=== PATIENT | female | born 1965 | race Caucasian/White ===

== ENCOUNTER → 2021-10-23 | Outpatient (CLI) | payer OTHER ==
[~2021-10-23] MED LIST: CRUTCH3 USE; CYCL10 PO; Cyclobenzaprine5 MG PO; DIAZ5 PO; DULO30; FURO20 PO; GABA300 PO; GLIP5 PO; HYDACE5 PO; IBUP800 PO; LEVFLO500 PO; METF500 PO; METO25; NAPR500 PO; Naprosyn500 MG PO; OMEP20ER PO; OXYACE5T PO; POTCHL10ER PO; PRAV10 PO; PRED20 PO; PROCODE120 PO; Percocet 5-3251 EACH PO; Phenergan25 M1 PO; Prednisone20 MG PO; Prozac20 MG PO; RXCYCL10 PO; RXHYDACE PO; RXHYDMOR2 PO; RXOXYACE PO; SITA25T2 PO; TRAM50 PO; TRAZ50 PO; Ultram50 MG PO; Veetids 500500 MG PO; ZESTRIL40 MG PO; [UNRECOGNIZED DRUG - REMARK]; [UNRECOGNIZED DRUG - REMARK]
[2021-10-23 12:24] LABS: Source, Urine Clean Catch
[2021-10-23 13:22] LABS: Appearance, Urine Clear (Clear); Bilirubin, Urine Neg (Neg); Blood, Urine 1+ (Neg); Color, Urine Yellow (P-Yellow); Glucose Qualitative, Urine Neg (Neg); Ketones, Urine Neg (Neg); Leukocyte Esterase, Urine Neg (Neg); Nitrite, Urine Neg (Neg); Protein, Urine 4+ (Neg); Specific Gravity, Urine 1.015 (1.003-1.022); Urobilinogen, Urine NORM (Normal)
[2021-10-23 13:30] LABS: White Blood Cells, Urine 0-2 /hpf (0-5)
[2021-10-23 13:31] LABS: Bacteria Mod /hpf; Red Blood Cells, Urine 0-2 /hpf (0-2); Squamous Epithelial Cells Few /hpf (Few)
[2021-10-23 14:30] LABS: Creatinine, Urine Random 72.4 mg/dL (27.00-270.00); Protein, Urine Random 233.3 mg/dL (0.0-11.9); Protein/Creat Ratio, Ur Random 3.2
== END | disposition home or self-care (01) ==
LOC: LAB 10:40 → LAB SHORT 10:40
PROVIDERS: Internal Medicine Nephrology
DX: N18.4 Chronic kidney disease, stage 4 (severe) (principal)
CPT/HCPCS: 81001; 82570; 84156; 87086

== ENCOUNTER 2022-07-21 10:45 | Day surgery (SDC) | payer OTHER ==
[2022-07-26] MEDS ORDERED: DEXL60CA3 PO (12:18)
[2022-07-26] MEDS ORDERED: MICROZIDE12.5 M1 PO (12:19)
[2022-07-26] MEDS ORDERED: HUMULIN R500 UNIT/2 (12:19)
[2022-07-26] MEDS ORDERED: LOSA50 PO (12:20)
[2022-07-26] MEDS ORDERED: ZYRTEC10 M2 PO (12:20)
[2022-07-26] MEDS ORDERED: ALBU90OI INH (12:20)
[2022-07-26] MEDS ORDERED: ONDA4ODT MM (12:21)
[2022-07-26] MEDS ORDERED: POTASSIUM99 M3 PO (12:21)
[2022-07-26] MEDS ORDERED: TORSE20 PO (12:21)
[2022-07-26] MEDS ORDERED: PREG75 PO (12:22)
[2022-07-26] MEDS ORDERED: FARXIGA5 MG PO (12:22)
[2022-07-26] MEDS ORDERED: VICTOZA 2-0.6 MG/0.1 SC (12:22)
== END 2022-07-27 22:41 | disposition home or self-care (01) ==
LOC: MOI MAM 10:45
DX: D05.12 Intraductal carcinoma in situ of left breast (principal)
CPT/HCPCS: 19281; A4648

== ENCOUNTER 2022-08-26 08:58 | Day surgery (SDC) | payer OTHER ==
[~2022-08-26] VITALS: Ht 167.6 cm; Wt 134.3 kg
[~2022-08-26 08:58] MED LIST changes: +ALBU90OI INH; +DEXL60CA3 PO; +FARXIGA5 MG PO; +HUMULIN R500 UNIT/2; +LOSA50 PO; +MICROZIDE12.5 M1 PO; +ONDA4ODT MM; +POTASSIUM99 M3 PO; +PREG75 PO; +TORSE20 PO; +VICTOZA 2-0.6 MG/0.1 SC; +ZYRTEC10 M2 PO
--- NOTE | 2022-08-26 10:21 | NUR ---
Wheelchair into Day Surgery History, Chart, Medications and Allergies reviewed before start of procedure. Pre-Op teaching done. Pt verbalizes understanding. Patient States Post-Procedure ride home has been arranged.
--- NOTE | 2022-08-26 13:24 | NUR ---
REPORT RECEIVED FROM PEDRO NAGY RN. VSS. PT REPORTS 2/10 ACHING PAIN TO LEFT BREAST. DRESSINGS ARE C/D/I WITHOUT DRAINAGE, REDNESS, OR SWELLING. PT TOLERATING PO FLUIDS WELL AND TOLERATING THEM WELL.
--- NOTE | 2022-08-26 13:41 | NUR ---
Patient up to Ambulate independently. Gait steady. Discharge instructions reviewed with patient. Patient verbalizes understanding. Copy given to patient to take home. Dressing to procedure site clean, dry, intact with no visible drainage, swelling, erythema or bruising noted. Patient States Post-Procedure ride home has been arranged. Discharged via wheelchair to private car for ride home. PT BELONGINGS RETURNED TO PT.
== END 2022-08-26 22:36 | disposition home or self-care (01) ==
LOC: ORSCMMR 08:58 → ORD 10:15 → ORSCMMR 22:36
PROVIDERS: Surgery
PROC: 0HBU0ZZ Excision of Left Breast, Open Approach (ICD-10-PCS; principal; 2022-08-26 10:15)
DX: D05.12 Intraductal carcinoma in situ of left breast (principal); E11.22 Type 2 diabetes mellitus with diabetic chronic kidney disease; I12.9 Hypertensive chronic kidney disease with stage 1 through stage 4 chronic kidney disease, or unspecified chronic kidney disease; N18.9 Chronic kidney disease, unspecified; Z79.4 Long term (current) use of insulin; Z79.899 Other long term (current) drug therapy; J44.9 Chronic obstructive pulmonary disease, unspecified; K21.9 Gastro-esophageal reflux disease without esophagitis; G47.33 Obstructive sleep apnea (adult) (pediatric); E66.01 Morbid (severe) obesity due to excess calories; Z68.42 Body mass index [BMI] 45.0-49.9, adult
CPT/HCPCS: 82947; 88307; J0690; J1100; J2405; J2704; J2795; J3010; J7120

== ENCOUNTER 2022-11-18 11:19 | Day surgery (SDC) | payer OTHER ==
[2022-11-18] VITALS (7 sets, daily range): BP systolic 145–177; BP diastolic 68–87
[~2022-11-18] VITALS: Ht 167.6 cm; Wt 129.0 kg
[~2022-11-18 11:19] MED LIST changes: +FEBU40TA PO; +FERSU300 PO; -HUMULIN R500 UNIT/2; +HUMULIN R500 UNIT/2 SC; +OXYC5 PO; +OXYCODONE PO; -PRAV10 PO; +PRAV20 PO
--- NOTE | 2022-11-18 12:17 | NUR ---
Wheelchaired into Day Surgery History, Chart, Medications and Allergies reviewed before start of procedure. Pre-Op teaching done. Pt verbalizes understanding. Patient States Post-Procedure ride home has been arranged.
--- NOTE | 2022-11-18 14:41 | NUR ---
Patient up to Ambulate independently. Gait steady. Discharge instructions reviewed with patient. Patient verbalizes understanding. Copy given to patient to take home. History, Chart, Medications and Allergies reviewed before start of procedure.Patient States Post-Procedure ride home has been arranged.
== END 2022-11-18 14:44 | disposition home or self-care (01) ==
LOC: ORSCMMR 11:19 → ORD 13:00 → ORSCMMR 14:44
DX: C50.812 Malignant neoplasm of overlapping sites of left female breast (principal); E11.40 Type 2 diabetes mellitus with diabetic neuropathy, unspecified; Z79.4 Long term (current) use of insulin; I12.9 Hypertensive chronic kidney disease with stage 1 through stage 4 chronic kidney disease, or unspecified chronic kidney disease; E11.22 Type 2 diabetes mellitus with diabetic chronic kidney disease; N18.9 Chronic kidney disease, unspecified; J44.9 Chronic obstructive pulmonary disease, unspecified; F17.210 Nicotine dependence, cigarettes, uncomplicated; E66.01 Morbid (severe) obesity due to excess calories; Z68.42 Body mass index [BMI] 45.0-49.9, adult; Z79.899 Other long term (current) drug therapy
CPT/HCPCS: 77001; 82947; C1788; J0330; J0690; J1100; J1642; J2250; J2405; J2704; J3010; J7120

== ENCOUNTER → 2023-02-18 | Outpatient (CLI) | payer OTHER ==
[2023-02-18 13:00] LABS: Source, Urine Clean Catch
[2023-02-18 13:05] LABS: Appearance, Urine Clear (Clear); Bilirubin, Urine Neg (Neg); Blood, Urine 2+ (Neg); Glucose Qualitative, Urine 3+ (Neg); Ketones, Urine Neg (Neg); Leukocyte Esterase, Urine Neg (Neg); Nitrite, Urine Neg (Neg); Protein, Urine 3+ (Neg); Urobilinogen, Urine NORM (Normal)
[2023-02-18 13:12] LABS: BASOPHILS ABSOLUTE AUTO 0.06 K/mm3 (0.00-0.23); BASOPHILS PERCENT AUTO 1 % (0-2); EOSINOPHILS ABSOLUTE AUTO 0.04 K/mm3 (0.00-0.68); EOSINOPHILS PERCENT AUTO 1 % (0-6); Hematocrit 34.7 % (33.0-51.0); Hemoglobin 11.2 g/dL (11.5-16.0); IMMATURE GRAN ABSOLUTE AUTO 0.06 K/mm3 (0.00-0.10); IMMATURE GRAN PERCENT AUTO 1 % (0-1); LYMPHOCYTES ABSOLUTE AUTO 1.55 K/mm3 (0.84-5.20); LYMPHOCYTES PERCENT AUTO 24 % (21-46); MONOCYTES ABSOLUTE AUTO 0.44 K/mm3 (0.16-1.47); MONOCYTES PERCENT AUTO 7 % (4-13); Mean Corpuscular HGB 26.4 pg (26.0-34.0); Mean Corpuscular HGB Conc 32.3 g/dL (31.5-36.5); Mean Corpuscular Volume 82 fL (80-100); Mean Platelet Volume 10.3 fL (9.1-12.4); NEUTROPHILS ABSOLUTE AUTO 4.44 K/mm3 (1.96-9.15); NEUTROPHILS PERCENT AUTO 67 % (41-73); Platelet Count 111 K/mm3 (150-400); RDW Coefficient Variation 20.1 % (11.7-14.2); RDW Standard Deviation 58.4 fL (35.1-46.3); Red Blood Cell Count 4.24 M/mm3 (3.80-5.20); White Blood Cell Count 6.59 K/mm3 (4.00-11.30)
[2023-02-18 13:26] LABS: Color, Urine Pale Yellow (P-Yellow)
[2023-02-18 13:31] LABS: White Blood Cells, Urine 0-2 /hpf (0-5)
[2023-02-18 13:32] LABS: Red Blood Cells, Urine 0-2 /hpf (0-2)
[2023-02-18 13:33] LABS: Bacteria Mod /hpf; Squamous Epithelial Cells Few /hpf (Few)
[2023-02-18 13:42] LABS: Creatinine, Urine Random 75.6 mg/dL (27.00-270.00); Protein, Urine Random 148.2 mg/dL (0.0-11.9)
[2023-02-18 14:29] LABS: Albumin, Blood 3.1 g/dL (3.4-5.0); Anion Gap 6 mmol/L (6-16); Blood Urea Nitrogen 66 mg/dL (8-24); Bun/Creatinine Ratio 29.1 (12.0-20.0); CO2, Blood 28 mmol/L (21-32); Calcium, Blood 8.8 mg/dL (8.5-10.1); Chloride, Blood 105 mmol/L (98-108); Creatinine, Blood 2.27 mg/dL (0.40-1.00); Glomerular Filtration Rate 24 (60-); Glucose, Blood 213 mg/dL (70-99); Phosphorus, Blood 3.9 mg/dL (2.5-4.9); Potassium, Blood 3.8 mmol/L (3.5-5.5); Sodium, Blood 139 mmol/L (136-145)
== END | disposition home or self-care (01) ==
LOC: LAB SHORT 11:31 → LAB 11:31
PROVIDERS: Hospitalist
DX: N18.32 Chronic kidney disease, stage 3b (principal)
CPT/HCPCS: 36415; 80069; 81001; 82570; 83970; 84156; 85025; 87086

== ENCOUNTER → 2023-03-29 | Outpatient (CLI) | payer OTHER ==
[2023-03-29 15:08] LABS: C DIFFICILE DNA NEGATIVE (Negative)
== END | disposition home or self-care (01) ==
LOC: LAB SHORT 01:30 → LAB 01:30
PROVIDERS: Internal Medicine Hematology & Oncology
DX: C50.919 Malignant neoplasm of unspecified site of unspecified female breast (principal)
CPT/HCPCS: 87493

== ENCOUNTER 2023-12-15 11:26 | Day surgery (SDC) | payer OTHER ==
[~2023-12-15] VITALS: Ht 167.6 cm; Wt 131.8 kg
[~2023-12-15 11:26] MED LIST changes: +Balanced Salt Epinephrine Irrigation Solution 500 mL IR SCH; +Lidocaine HCl/Pf 1% 5 ML VIAL XX SCH; +Moxifloxacin HCL 0.5 MG/0.1 ML 0.4MLSYR RIGHTEYE SCH; +NS 500 ML IV ONE; +PHENYLEPHRINE\\TROPICAMIDE\\TETRACAINE OPHTHALMIC DILATING SOLN RIGHTEYE PRN; +Povidone-Iodine 450 DROP/30 ML Solution RIGHTEYE SCH; +Triamcinolone Inj Susp 40 MG / ML 1ML Vial INJ SCH; +Triamcinolone Inj Susp 40 MG / ML 1ML Vial ONE
[2023-12-15] MEDS ORDERED: NS 500 ML IV ONE (11:39)
[2023-12-15] MEDS ORDERED: OZEMPIC1 MG/0.72 SQ (11:43)
[2023-12-15] MEDS ORDERED: METOPROLOL SUCC25 MG PO (11:45)
[2023-12-15] MEDS ORDERED: DEXCOM G7 SENS1 EACH MC (11:49)
[2023-12-15] MEDS ORDERED: CALCITRIOL0.25 MC4 PO (11:50)
[2023-12-15] MEDS ORDERED: HYDPAM50 (11:50)
[2023-12-15] MEDS ORDERED: ESCI10 PO (11:50)
[2023-12-15] MEDS ORDERED: ANASTROZOLE1 M7 PO (11:51)
[2023-12-15] MEDS ORDERED: PANTOPRAZOLE SO40 M2 PO (11:51)
[2023-12-15] MEDS ORDERED: Midazolam HCl 1MG / ML 2ML Vial ONE ×2 (12:17→12:22)
[2023-12-15] MEDS ORDERED: FentaNYL Citrate 50 MCG/ML 2 ML Injection ONE (12:17)
[2023-12-15] MEDS ORDERED: Tetracaine HCl 0.5% Opth Soln 15 ml RIGHTEYE ONE (12:23)
[2023-12-15 12:53] VITALS: BP 122/60
== END 2023-12-15 13:02 | disposition home or self-care (01) ==
LOC: ORSCSDS 11:26
PROVIDERS: Ophthalmology
PROC: 08RJ3JZ Replacement of Right Lens with Synthetic Substitute, Percutaneous Approach (ICD-10-PCS; principal; 2023-12-15 12:30)
DX: E11.36 Type 2 diabetes mellitus with diabetic cataract (principal); H25.811 Combined forms of age-related cataract, right eye; E11.22 Type 2 diabetes mellitus with diabetic chronic kidney disease; I12.9 Hypertensive chronic kidney disease with stage 1 through stage 4 chronic kidney disease, or unspecified chronic kidney disease; N18.30 Chronic kidney disease, stage 3 unspecified; G47.33 Obstructive sleep apnea (adult) (pediatric); Z85.3 Personal history of malignant neoplasm of breast; E66.9 Obesity, unspecified; Z68.42 Body mass index [BMI] 45.0-49.9, adult; Z79.4 Long term (current) use of insulin; Z79.85 Long-term (current) use of injectable non-insulin antidiabetic drugs; Z79.899 Other long term (current) drug therapy; F17.290 Nicotine dependence, other tobacco product, uncomplicated
CPT/HCPCS: 82947; J2250; J3010; J3301; J7040; V2632

== ENCOUNTER 2023-12-22 11:24 | Day surgery (SDC) | payer OTHER ==
[~2023-12-22] VITALS: Ht 167.6 cm; Wt 129.1 kg
[~2023-12-22 11:24] MED LIST changes: +ANASTROZOLE1 M7 PO; +CALCITRIOL0.25 MC4 PO; +DEXCOM G7 SENS1 EACH MC; +ESCI10 PO; +HYDPAM50; +METOPROLOL SUCC25 MG PO; +Moxifloxacin HCL 0.5 MG/0.1 ML 0.4MLSYR LEFTEYE SCH; -Moxifloxacin HCL 0.5 MG/0.1 ML 0.4MLSYR RIGHTEYE SCH; +OZEMPIC1 MG/0.72 SQ; +PANTOPRAZOLE SO40 M2 PO; +PHENYLEPHRINE\\TROPICAMIDE\\TETRACAINE OPHTHALMIC DILATING SOLN LEFTEYE PRN; -PHENYLEPHRINE\\TROPICAMIDE\\TETRACAINE OPHTHALMIC DILATING SOLN RIGHTEYE PRN; +Povidone-Iodine 450 DROP/30 ML Solution LEFTEYE SCH; -Povidone-Iodine 450 DROP/30 ML Solution RIGHTEYE SCH
[2023-12-22] MEDS ORDERED: Tropicamide 1% Opth Soln 15 ML BTL ONE (11:40)
[2023-12-22] MEDS ORDERED: ALBU8HFA2 (11:56)
[2023-12-22] MEDS ORDERED: Flonase 0.05% N16 GM (11:59)
[2023-12-22] MEDS ORDERED: ATORVASTATIN CA20 MG PO (12:00)
[2023-12-22] MEDS ORDERED: ATORVASTATIN CALCIUM (12:00)
[2023-12-22] MEDS ORDERED: POTASSIUM (12:01)
[2023-12-22] MEDS ORDERED: OXYC10TA19 PO (12:10)
[2023-12-22] MEDS ORDERED: ALPRAZOLAM2 M1 (12:11)
[2023-12-22] MEDS ORDERED: PROM25 (12:11)
[2023-12-22] MEDS ORDERED: NS 500 ML IV ONE (12:26)
[2023-12-22] MEDS ORDERED: Midazolam HCl 1MG / ML 2ML Vial ONE (12:37)
--- NOTE | 2023-12-22 13:02 | NUR ---
12/22/23 1302 Judith Mazariegos 1230: dr lorenz notified of blood sugar of 265, no new orders received
[2023-12-22 13:25] VITALS: BP 126/60
== END 2023-12-22 13:17 | disposition home or self-care (01) ==
LOC: ORSCSDS 11:24
PROVIDERS: Ophthalmology
PROC: 08RK3JZ Replacement of Left Lens with Synthetic Substitute, Percutaneous Approach (ICD-10-PCS; principal; 2023-12-22 12:30)
DX: E11.36 Type 2 diabetes mellitus with diabetic cataract (principal); H25.812 Combined forms of age-related cataract, left eye; Z96.1 Presence of intraocular lens; H35.30 Unspecified macular degeneration; I12.9 Hypertensive chronic kidney disease with stage 1 through stage 4 chronic kidney disease, or unspecified chronic kidney disease; E11.22 Type 2 diabetes mellitus with diabetic chronic kidney disease; N18.30 Chronic kidney disease, stage 3 unspecified; J45.909 Unspecified asthma, uncomplicated; F17.210 Nicotine dependence, cigarettes, uncomplicated; E66.9 Obesity, unspecified; Z68.42 Body mass index [BMI] 45.0-49.9, adult; Z79.85 Long-term (current) use of injectable non-insulin antidiabetic drugs; Z79.899 Other long term (current) drug therapy
CPT/HCPCS: 82947; J2250; J3301; J7040; V2632

== ENCOUNTER 2024-01-25 09:28 | Day surgery (SDC) | payer OTHER ==
[~2024-01-25] VITALS: Ht 167.6 cm; Wt 133.2 kg
[~2024-01-25 09:28] MED LIST changes: +ALBU8HFA2; +ALPRAZOLAM2 M1; +ATORVASTATIN CA20 MG PO; +ATORVASTATIN CALCIUM; -Balanced Salt Epinephrine Irrigation Solution 500 mL IR SCH; +CeFAZolin Sodium 2,000 MG VIAL ONE; +Flonase 0.05% N16 GM; +Lactated Ringer's 1,000 ML IV ONE; +Lidocaine HCl/Pf 1% 5 ML VIAL ONE; -Lidocaine HCl/Pf 1% 5 ML VIAL XX SCH; -Moxifloxacin HCL 0.5 MG/0.1 ML 0.4MLSYR LEFTEYE SCH; +NS 0 ML IV ONE; -NS 500 ML IV ONE; +OXYC10TA19 PO; -PHENYLEPHRINE\\TROPICAMIDE\\TETRACAINE OPHTHALMIC DILATING SOLN LEFTEYE PRN; +POTASSIUM; +PROM25; -Povidone-Iodine 450 DROP/30 ML Solution LEFTEYE SCH; -Triamcinolone Inj Susp 40 MG / ML 1ML Vial INJ SCH
[2024-01-25] MEDS ORDERED: propofoL 20 ML IV ONE (09:37)
[2024-01-25] MEDS ORDERED: Midazolam HCl 1MG / ML 2ML Vial ONE (09:37)
[2024-01-25] MEDS ORDERED: FentaNYL Citrate 50 MCG/ML 2 ML Injection ONE (09:37)
[2024-01-25] MEDS ORDERED: CeFAZolin Sodium 3,000 MG in NS 100 ML IV SCH (09:50)
[2024-01-25] MEDS ORDERED: Lactated Ringer's 1,000 ML IV ONE (10:16)
--- NOTE | 2024-01-25 10:28 | NUR ---
01/25/24 1028 Neela Mesa PER PT CAN'T USE BP CUFF ON LEFT ARM DUE TO HX BREAST CA AND LYMPHNODE REMOVAL. BP TAKEN ON LEFT LOWER LEG AND RIGHT OP ARM
[2024-01-25] MEDS ORDERED: Insulin Regular 100 UNIT/ML 10ML Vial ONE (11:07)
[2024-01-25] MEDS ORDERED: EPINEPhrine HCl 1 MG/ML 1ML Amp XX ONE ×4 (11:34→12:27)
--- NOTE | 2024-01-25 11:38 | NUR ---
01/25/24 1138 Yady Molina 1 MG OF EPI ADDED TO FIRST BAGOF LR FOR IRREGATION 0.1ML OF EPI ADDED TO 10ML OF NACL TO MAKE EPI 1:100,000 ON STERILE FIELD.
[2024-01-25] MEDS ORDERED: Phenylephrine HCl 100 MCG/ML-NS 10MLSYR (1MG/10ML) ONE (11:54)
[2024-01-25] MEDS ORDERED: ePHEDrine Sulfate 50 MG/ML 1ML Injection ONE ×2 (12:21→14:27)
[2024-01-25] MEDS ORDERED: Sugammadex Sodium 200 MG/2ML SDV (100 MG/ML) ONE (13:22)
[2024-01-25] MEDS ORDERED: Ondansetron HCl 2 MG / ML 2ML Vial ONE (14:37)
[2024-01-25] MEDS ORDERED: Dexamethasone Sod Phos 10 MG/ML 1ML VIAL ONE (14:37)
[2024-01-25 14:49] VITALS: BP 153/82
== END 2024-01-25 15:14 | disposition home or self-care (01) ==
LOC: ORSCSDS 09:28
PROVIDERS: Orthopaedic Surgery
PROC: 0RNJ4ZZ Release Right Shoulder Joint, Percutaneous Endoscopic Approach (ICD-10-PCS; principal; 2024-01-25 10:30)
DX: M75.101 Unspecified rotator cuff tear or rupture of right shoulder, not specified as traumatic (principal); E11.22 Type 2 diabetes mellitus with diabetic chronic kidney disease; I12.9 Hypertensive chronic kidney disease with stage 1 through stage 4 chronic kidney disease, or unspecified chronic kidney disease; N18.30 Chronic kidney disease, stage 3 unspecified; G47.33 Obstructive sleep apnea (adult) (pediatric); K21.9 Gastro-esophageal reflux disease without esophagitis; K76.0 Fatty (change of) liver, not elsewhere classified; E66.01 Morbid (severe) obesity due to excess calories; Z68.42 Body mass index [BMI] 45.0-49.9, adult; Z85.3 Personal history of malignant neoplasm of breast; F17.290 Nicotine dependence, other tobacco product, uncomplicated; Z79.4 Long term (current) use of insulin; Z79.85 Long-term (current) use of injectable non-insulin antidiabetic drugs; Z79.899 Other long term (current) drug therapy
CPT/HCPCS: 82947; C1713; J0171; J0690; J1100; J1815; J2001; J2250; J2371; J2405; J2704; J3010; J3301; J7120

== ENCOUNTER → 2024-02-20 | Outpatient (CLI) | payer OTHER ==
[~2024-02-20] MED LIST changes: -CeFAZolin Sodium 2,000 MG VIAL ONE; -Lactated Ringer's 1,000 ML IV ONE; -Lidocaine HCl/Pf 1% 5 ML VIAL ONE; -NS 0 ML IV ONE; -Triamcinolone Inj Susp 40 MG / ML 1ML Vial ONE
[2024-02-20 19:32] LABS: Hematocrit 39.1 % (33.0-51.0); Hemoglobin 12.8 g/dL (11.5-16.0); Mean Corpuscular HGB 27.2 pg (26.0-34.0); Mean Corpuscular HGB Conc 32.7 g/dL (31.5-36.5); Mean Corpuscular Volume 83 fL (80-100); Mean Platelet Volume 10.5 fL (9.1-12.4); Platelet Count 191 K/mm3 (150-400); RDW Coefficient Variation 14.3 % (11.7-14.2); RDW Standard Deviation 42.6 fL (35.1-46.3); White Blood Cell Count 5.76 K/mm3 (4.00-11.30)
[2024-02-20 19:52] LABS: BASOPHILS PERCENT MAN 1 % (0-2); EOSINOPHILS PERCENT MAN 0 % (0-6); LYMPHOCYTES PERCENT MAN 15 % (21-46); MONOCYTES PERCENT MAN 2 % (4-13); SEG NEUTROPHILS PERCENT MAN 82 % (41-73); TOTAL CELLS COUNTED 100
[2024-02-20 20:00] LABS: Albumin, Blood 3.4 g/dL (3.4-5.0); Albumin/Globulin Ratio 0.9 (0.8-1.8); Bilirubin, Direct 0.1 mg/dL (0.0-0.3); Bilirubin, Indirect 0.4 mg/dL (0.1-0.7); Bilirubin, Total 0.5 mg/dL (0.1-1.0); Bun/Creatinine Ratio 18.4 (12.0-20.0); Calcium, Blood 10.1 mg/dL (8.5-10.1); Creatinine, Blood 1.52 mg/dL (0.40-1.00); Globulin, Blood 3.9 g/dL (2.2-4.0); Potassium, Blood 4.4 mmol/L (3.5-5.5); Total Protein, Blood 7.3 g/dL (6.4-8.2)
== END ==
LOC: LAB 19:25 → LAB SHORT 19:25
PROVIDERS: Nurse Practitioner
DX: R73.9 Hyperglycemia, unspecified (principal); R25.1 Tremor, unspecified; R68.83 Chills (without fever); Z86.39 Personal history of other endocrine, nutritional and metabolic disease
CPT/HCPCS: 80053; 82248; 85007; 85027

== ENCOUNTER 2024-10-23 16:19 | Emergency (ER) | payer OTHER ==
[~2024-10-23] VITALS: Ht 167.6 cm; Wt 117.5 kg
[~2024-10-23 16:19] MED LIST changes: -DICY20 PO; -METO10 PO
[2024-10-23] MEDS ORDERED: Prochlorperazine Edisylate 10 mg Vial IV ONE (16:40)
[2024-10-23] MEDS ORDERED: DiphenhydrAMINE HCl 50 MG/ML 1ML Vial IV ONE (16:40)
[2024-10-23 16:47] LABS: Base Excess Venous -5.6 mmol/L; Bicarbonate Venous 19.2 mmol/L (24.0-30.0); PCO2 Venous 47.5 mmHg (38-42)
[2024-10-23 16:49] LABS: pH Blood Venous 7.26 (7.34-7.37)
[2024-10-23] MEDS ORDERED: NS 1,000 ML IV SCH (16:50)
[2024-10-23 16:51] LABS: BASOPHILS ABSOLUTE AUTO 0.07 K/mm3 (0.00-0.23); BASOPHILS PERCENT AUTO 1 % (0-2); EOSINOPHILS ABSOLUTE AUTO 0.02 K/mm3 (0.00-0.68); EOSINOPHILS PERCENT AUTO 0 % (0-6); Hematocrit 41.9 % (33.0-51.0); Hemoglobin 13.7 g/dL (11.5-16.0); IMMATURE GRAN ABSOLUTE AUTO 0.06 K/mm3 (0.00-0.10); IMMATURE GRAN PERCENT AUTO 1 % (0-1); LYMPHOCYTES ABSOLUTE AUTO 0.74 K/mm3 (0.84-5.20); LYMPHOCYTES PERCENT AUTO 7 % (21-46); MONOCYTES ABSOLUTE AUTO 0.12 K/mm3 (0.16-1.47); MONOCYTES PERCENT AUTO 1 % (4-13); Mean Corpuscular HGB 26.5 pg (26.0-34.0); Mean Corpuscular HGB Conc 32.7 g/dL (31.5-36.5); Mean Corpuscular Volume 81 fL (80-100); Mean Platelet Volume 11.3 fL (9.1-12.4); NEUTROPHILS ABSOLUTE AUTO 10.08 K/mm3 (1.96-9.15); NEUTROPHILS PERCENT AUTO 91 % (41-73); Platelet Count 216 K/mm3 (150-400); RDW Coefficient Variation 15.9 % (11.7-14.2); RDW Standard Deviation 46.7 fL (35.1-46.3); Red Blood Cell Count 5.17 M/mm3 (3.80-5.20); White Blood Cell Count 11.09 K/mm3 (4.00-11.30)
[2024-10-23 17:28] LABS: Albumin, Blood 3.3 g/dL (3.4-5.0); Albumin/Globulin Ratio 0.8 (0.8-1.8); Bilirubin, Total 0.6 mg/dL (0.1-1.0); Bun/Creatinine Ratio 24.6 (12.0-20.0); Calcium, Blood 8.7 mg/dL (8.5-10.1); Creatinine, Blood 1.91 mg/dL (0.40-1.00); Globulin, Blood 4.4 g/dL (2.2-4.0); Potassium, Blood 4.2 mmol/L (3.5-5.5); Total Protein, Blood 7.7 g/dL (6.4-8.2)
[2024-10-23] MEDS ORDERED: Droperidol 5 mg/2 ml Vial IV ONE (17:55)
[2024-10-23 18:49] LABS: Influenza A, PCR NEGATIVE (NEGATIVE); Influenza B, PCR NEGATIVE (NEGATIVE); Resp Syncytial Virus, PCR NEGATIVE (NEGATIVE); SARS-Cov-2 (COVID-19) PCR, MMC NEGATIVE (NEGATIVE)
[2024-10-23] MEDS ORDERED: Ketorolac Tromethamine 30mg Vial IV ONE (19:10)
[2024-10-23] MEDS ORDERED: LORazepam 2 MG/ML 1ML Injection IV ONE (20:00)
[2024-10-23] MEDS ORDERED: Morphine Sulfate 4 MG/1 ML Injection IV ONE (20:00)
[2024-10-23] MEDS ORDERED: DICY20 PO (21:45)
[2024-10-23] MEDS ORDERED: METO10 PO (21:45)
[2024-10-23] MEDS ORDERED: ONDA4ODT MM (21:45)
[2024-10-23 22:00] VITALS: BP 176/78
== END 2024-10-23 22:15 | disposition home or self-care (01) ==
LOC: ER 16:19
PROVIDERS: Physician Assistant
DX: R11.2 Nausea with vomiting, unspecified (principal); R10.9 Unspecified abdominal pain; I12.9 Hypertensive chronic kidney disease with stage 1 through stage 4 chronic kidney disease, or unspecified chronic kidney disease; E11.22 Type 2 diabetes mellitus with diabetic chronic kidney disease; N18.30 Chronic kidney disease, stage 3 unspecified; E78.5 Hyperlipidemia, unspecified; Z88.8 Allergy status to other drugs, medicaments and biological substances; Z79.4 Long term (current) use of insulin; Z79.899 Other long term (current) drug therapy; R11.10 Vomiting, unspecified
CPT/HCPCS: 0241U; 80053; 82010; 82803; 83690; 85025; 93005; 93010; 96361; 96374; 96375; 99284-25; J0780; J1200; J1790; J1885; J2060; J2270; J7030

== ENCOUNTER → 2024-10-23 | Outpatient (CLI) | payer OTHER ==
[~2024-10-23] MED LIST changes: +DICY20 PO; +METO10 PO
[2024-10-23 17:10] LABS: BASOPHILS PERCENT AUTO 1 % (0-2); EOSINOPHILS ABSOLUTE AUTO 0.08 K/mm3 (0.00-0.68); EOSINOPHILS PERCENT AUTO 1 % (0-6); Hematocrit 43.7 % (33.0-51.0); Hemoglobin 14.1 g/dL (11.5-16.0); IMMATURE GRAN ABSOLUTE AUTO 0.09 K/mm3 (0.00-0.10); IMMATURE GRAN PERCENT AUTO 1 % (0-1); LYMPHOCYTES ABSOLUTE AUTO 0.97 K/mm3 (0.84-5.20); LYMPHOCYTES PERCENT AUTO 8 % (21-46); MONOCYTES ABSOLUTE AUTO 0.21 K/mm3 (0.16-1.47); MONOCYTES PERCENT AUTO 2 % (4-13); Mean Corpuscular HGB 25.9 pg (26.0-34.0); Mean Corpuscular HGB Conc 32.3 g/dL (31.5-36.5); Mean Corpuscular Volume 80 fL (80-100); Mean Platelet Volume 10.5 fL (9.1-12.4); NEUTROPHILS ABSOLUTE AUTO 10.34 K/mm3 (1.96-9.15); NEUTROPHILS PERCENT AUTO 88 % (41-73); Platelet Count 221 K/mm3 (150-400); RDW Coefficient Variation 15.9 % (11.7-14.2); RDW Standard Deviation 45.9 fL (35.1-46.3); Red Blood Cell Count 5.45 M/mm3 (3.80-5.20); White Blood Cell Count 11.79 K/mm3 (4.00-11.30)
[2024-10-23 18:00] LABS: Albumin, Blood 3.6 g/dL (3.4-5.0); Albumin/Globulin Ratio 0.9 (0.8-1.8); Bilirubin, Total 0.5 mg/dL (0.1-1.0); Bun/Creatinine Ratio 24.2 (12.0-20.0); Calcium, Blood 8.9 mg/dL (8.5-10.1); Creatinine, Blood 1.98 mg/dL (0.40-1.00); Globulin, Blood 4.1 g/dL (2.2-4.0); Potassium, Blood 4.3 mmol/L (3.5-5.5); Total Protein, Blood 7.7 g/dL (6.4-8.2)
== END ==
LOC: LAB SHORT 15:35 → LAB 15:35
PROVIDERS: Nurse Practitioner Family
DX: R11.10 Vomiting, unspecified (principal)
CPT/HCPCS: 80053; 83690; 85025

== ENCOUNTER 2024-12-11 21:35 | Emergency (ER) | payer OTHER ==
[~2024-12-11] VITALS: Ht 167.6 cm; Wt 113.4 kg
[~2024-12-11 21:35] MED LIST changes: +DICY20 PO; +HYDPAM50 PO; +METO10 PO
[2024-12-11 21:40] VITALS: BP 217/103
[2024-12-11 21:53] LABS: BASOPHILS ABSOLUTE AUTO 0.08 K/mm3 (0.00-0.23); BASOPHILS PERCENT AUTO 1 % (0-2); EOSINOPHILS ABSOLUTE AUTO 0.07 K/mm3 (0.00-0.68); EOSINOPHILS PERCENT AUTO 1 % (0-6); Hematocrit 44.5 % (33.0-51.0); Hemoglobin 14.8 g/dL (11.5-16.0); IMMATURE GRAN ABSOLUTE AUTO 0.07 K/mm3 (0.00-0.10); IMMATURE GRAN PERCENT AUTO 1 % (0-1); LYMPHOCYTES ABSOLUTE AUTO 1.79 K/mm3 (0.84-5.20); LYMPHOCYTES PERCENT AUTO 16 % (21-46); MONOCYTES ABSOLUTE AUTO 0.52 K/mm3 (0.16-1.47); MONOCYTES PERCENT AUTO 5 % (4-13); Mean Corpuscular HGB Conc 33.3 g/dL (31.5-36.5); Mean Corpuscular Volume 80 fL (80-100); NEUTROPHILS ABSOLUTE AUTO 8.64 K/mm3 (1.96-9.15); NEUTROPHILS PERCENT AUTO 77 % (41-73); NRBC ABSOLUTE 0.00 K/mm3 (0.00-0.02); NRBC Auto 0.0 /100 WBC (0.0-0.2); Platelet Count 246 K/mm3 (150-400); RDW Coefficient Variation 14.7 % (11.7-14.2); RDW Standard Deviation 42.6 fL (35.1-46.3)
[2024-12-11] MEDS ORDERED: NS 1,000 ML IV SCH (22:00)
[2024-12-11] MEDS ORDERED: Ondansetron HCl 2 MG / ML 2ML Vial IV ONE (22:00)
[2024-12-11] MEDS ORDERED: Morphine Sulfate 4 MG/1 ML Injection IV ONE (22:00)
[2024-12-11] MEDS ORDERED: DiphenhydrAMINE HCl 50 MG/ML 1ML Vial IV ONE (22:20)
[2024-12-11] MEDS ORDERED: Prochlorperazine Edisylate 10 mg Vial IV ONE (22:20)
[2024-12-11 22:29] LABS: Alanine Aminotransfer (ALT/SGP 19.0 U/L (12-78); Albumin, Blood 3.2 g/dL (3.4-5.0); Albumin/Globulin Ratio 0.7 (0.8-1.8); Anion Gap 10.0 mmol/L (3-11); Aspartate Aminotrans (AST/SGOT 11.0 U/L (12-37); Bilirubin, Total 0.6 mg/dL (0.1-1.0); Blood Urea Nitrogen 40.0 mg/dL (8-24); CO2, Blood 23.0 mmol/L (21-32); Calcium, Blood 9.6 mg/dL (8.5-10.1); Chloride, Blood 107.0 mmol/L (98-108); Creatinine, Blood 1.99 mg/dL (0.40-1.00); Globulin, Blood 4.4 g/dL (2.2-4.0); Glucose, Blood 250.0 mg/dL (70-99); Magnesium, Blood 1.3 mg/dL (1.6-2.4); Potassium, Blood 3.9 mmol/L (3.5-5.5); Sodium, Blood 136.0 mmol/L (136-145); Total Protein, Blood 7.6 g/dL (6.4-8.2)
[2024-12-11 22:49] LABS: Source, Urine Clean Catch
[2024-12-11 23:01] LABS: Bilirubin, Urine Neg (Neg); Color, Urine Yellow (P-Yellow); Glucose Qualitative, Urine 2+ (Neg); Ketones, Urine Neg (Neg); Leukocyte Esterase, Urine Neg (Neg); Protein, Urine 4+ (Neg); Specific Gravity, Urine 1.015 (1.003-1.022); Urobilinogen, Urine NORM (Normal)
[2024-12-11 23:09] LABS: Red Blood Cells, Urine 0-2 /hpf (0-2)
[2024-12-11] MEDS ORDERED: ONDA4 PO (23:58)
[2024-12-15] MEDS ORDERED: CARBLEV25 SL (20:21)
== END 2024-12-12 00:09 | disposition home or self-care (01) ==
LOC: ER 21:35
PROVIDERS: Emergency Medicine; Student in an Organized Health Care Education/Training Program
DX: R11.2 Nausea with vomiting, unspecified (principal); N28.89 Other specified disorders of kidney and ureter; E11.22 Type 2 diabetes mellitus with diabetic chronic kidney disease; I12.9 Hypertensive chronic kidney disease with stage 1 through stage 4 chronic kidney disease, or unspecified chronic kidney disease; N18.30 Chronic kidney disease, stage 3 unspecified; E78.5 Hyperlipidemia, unspecified; F17.210 Nicotine dependence, cigarettes, uncomplicated; Z88.8 Allergy status to other drugs, medicaments and biological substances; Z79.4 Long term (current) use of insulin; Z79.85 Long-term (current) use of injectable non-insulin antidiabetic drugs; Z79.899 Other long term (current) drug therapy
CPT/HCPCS: 74177; 80053; 81001; 83690; 83735; 85025; 93005; 93010; 96361; 96374-59; 96375; 99284-25; J0780; J1200; J2405; J7030; Q9967

== ENCOUNTER 2024-12-15 16:17 | Inpatient (IN) | payer OTHER ==
[~2024-12-15] VITALS: Ht 167.6 cm; Wt 116.5 kg
[~2024-12-15 16:17] MED LIST changes: -ALBU8HFA2; +ALBU8HFA2 INH; -LOSA50 PO; +LOSARTAN POTAS100 M1 PO; +METO50ER PO; -METOPROLOL SUCC25 MG PO; +ONDA4 PO; -OXYC10TA19 PO; +OZEMPIC0.25 MG/02 SC; -OZEMPIC1 MG/0.72 SQ; +ROXICODONE15 MG PO
[2024-12-15 16:40] LABS: BASOPHILS ABSOLUTE AUTO 0.13 K/mm3 (0.00-0.23); BASOPHILS PERCENT AUTO 1 % (0-2); EOSINOPHILS ABSOLUTE AUTO 0.29 K/mm3 (0.00-0.68); EOSINOPHILS PERCENT AUTO 3 % (0-6); Hematocrit 39.3 % (33.0-51.0); Hemoglobin 13.2 g/dL (11.5-16.0); IMMATURE GRAN ABSOLUTE AUTO 0.11 K/mm3 (0.00-0.10); IMMATURE GRAN PERCENT AUTO 1 % (0-1); LYMPHOCYTES ABSOLUTE AUTO 2.53 K/mm3 (0.84-5.20); LYMPHOCYTES PERCENT AUTO 24 % (21-46); MONOCYTES ABSOLUTE AUTO 0.65 K/mm3 (0.16-1.47); MONOCYTES PERCENT AUTO 6 % (4-13); Mean Corpuscular HGB Conc 33.6 g/dL (31.5-36.5); Mean Corpuscular Volume 80 fL (80-100); NEUTROPHILS ABSOLUTE AUTO 6.94 K/mm3 (1.96-9.15); NEUTROPHILS PERCENT AUTO 65 % (41-73); NRBC ABSOLUTE 0.00 K/mm3 (0.00-0.02); NRBC Auto 0.0 /100 WBC (0.0-0.2); Platelet Count 239 K/mm3 (150-400); RDW Coefficient Variation 15.0 % (11.7-14.2); RDW Standard Deviation 42.9 fL (35.1-46.3)
[2024-12-15 16:58] LABS: Alanine Aminotransfer (ALT/SGP 14.0 U/L (12-78); Albumin, Blood 2.7 g/dL (3.4-5.0); Albumin/Globulin Ratio 0.8 (0.8-1.8); Anion Gap 14.0 mmol/L (3-11); Aspartate Aminotrans (AST/SGOT 8.0 U/L (12-37); Bilirubin, Total 0.6 mg/dL (0.1-1.0); Blood Urea Nitrogen 45.0 mg/dL (8-24); CO2, Blood 23.0 mmol/L (21-32); Calcium, Blood 8.7 mg/dL (8.5-10.1); Chloride, Blood 103.0 mmol/L (98-108); Creatinine, Blood 3.46 mg/dL (0.40-1.00); Globulin, Blood 3.4 g/dL (2.2-4.0); Glucose, Blood 383.0 mg/dL (70-99); Potassium, Blood 3.6 mmol/L (3.5-5.5); Sodium, Blood 136.0 mmol/L (136-145); Total Protein, Blood 6.1 g/dL (6.4-8.2)
[2024-12-15] MEDS ORDERED: NS 1,000 ML IV SCH ×2 (17:25→18:50)
[2024-12-15] MEDS ORDERED: Insulin Regular, Human 500 UNIT/ML 3ML SYR SC SCH (18:45)
[2024-12-15] MEDS ORDERED: Ondansetron HCl 2 MG / ML 2ML Vial IV PRN (18:50)
[2024-12-15] MEDS ORDERED: Albuterol 2.5 MG/3 ML VIAL INH PRN (18:55)
[2024-12-15] MEDS ORDERED: FEBU40TA PO (20:22)
[2024-12-15] MEDS ORDERED: ALLO100 PO (20:23)
[2024-12-15] MEDS ORDERED: PREG100 PO ×2 (20:26→20:27)
[2024-12-15] MEDS ORDERED: PANT40 PO (20:28)
[2024-12-15 20:58] VITALS: BP 127/75
[2024-12-15] MEDS ORDERED: Insulin Human Lispro 100 Units/ML 3ML Syringe SC SCH (21:00)
[2024-12-15] MEDS ORDERED: Heparin Sodium,Porcine 5,000 UNIT/0.5 ML SDV SC SCH (21:00)
[2024-12-15 21:12] LABS: Source, Urine Straight Cath
[2024-12-15 21:16] LABS: Bilirubin, Urine Neg (Neg); Glucose Qualitative, Urine 2+ (Neg); Ketones, Urine Neg (Neg); Leukocyte Esterase, Urine Neg (Neg); Protein, Urine 4+ (Neg); Specific Gravity, Urine 1.025 (1.003-1.022); Urobilinogen, Urine NORM (Normal)
[2024-12-15 21:23] LABS: Color, Urine Yellow (P-Yellow)
[2024-12-15 21:39] LABS: U Amphetamine Screen Not Detected; U Barbituate Screen Not Detected; U Benzodiazapine Screen Not Detected; U Buprenorphine Screen Not Detected; U Cannabinoids Screen Not Detected; U Cocaine Screen Not Detected; U Methadone Screen Not Detected; U Methamphetamine Screen Not Detected; U Opiates Screen Not Detected; U Oxycodone Screen DETECTED; U Phencyclidine Screen Not Detected
[2024-12-15 23:55] VITALS: BP 116/82
[2024-12-15] MEDS ORDERED: Magnesium Sulf 2 GM/Water 50ML 50 ML IV ONE (23:55)
[2024-12-15] MEDS ORDERED: Miconazole Nitrate 2% 85 GM PWD TOP SCH (23:55)
[2024-12-16 04:27] VITALS: BP 133/74
[2024-12-16 05:25] LABS: Hematocrit 37.7 % (33.0-51.0); Hemoglobin 12.3 g/dL (11.5-16.0); Mean Corpuscular HGB Conc 32.6 g/dL (31.5-36.5); Mean Corpuscular Volume 82 fL (80-100); NRBC ABSOLUTE 0.00 K/mm3 (0.00-0.02); NRBC Auto 0.0 /100 WBC (0.0-0.2); Platelet Count 192 K/mm3 (150-400); RDW Coefficient Variation 15.3 % (11.7-14.2); RDW Standard Deviation 45.1 fL (35.1-46.3)
[2024-12-16 05:50] LABS: Magnesium, Blood 2.3 mg/dL (1.6-2.4)
[2024-12-16 05:54] LABS: Anion Gap 9.0 mmol/L (3-11); Blood Urea Nitrogen 55.0 mg/dL (8-24); CO2, Blood 24.0 mmol/L (21-32); Calcium, Blood 8.5 mg/dL (8.5-10.1); Chloride, Blood 109.0 mmol/L (98-108); Creatinine, Blood 4.02 mg/dL (0.40-1.00); Glucose, Blood 46.0 mg/dL (70-99); Potassium, Blood 3.3 mmol/L (3.5-5.5); Sodium, Blood 139.0 mmol/L (136-145)
--- NOTE | 2024-12-16 06:45 | NUR ---
SHIFT SUMMARY PT ADMITTED FROM ED TO ROOM 337 AT 2039 FOR MOE AND WEAKNESS. PT ABLE TO STAND FROM GURNEY, BUT COULD NOT TAKE ANY STEPS. PT ASSISTED TO BSC AND THEN TO BED. PUREWICK PLACED FOR EXTREME WEAKNESS. IVF INITIATED PER ORDER. PT'S BLOOD SUGAR CHECKED WITH RESULTS OF 267, DOWN FROM 383 IN ED. REIMBURSEMENT REP LILLIAN CALLED TO CLARIFY INSULIN DOSE DUE TO UPDATE IN MED RECON AND HOURS HAD PASSED SINCE ORDER WITH GLUCOSE DECREASING. INSTRUCTED TO GIVE ORDERED DOSE. CRITICAL GLUCOSE CALLED FROM LAB THIS AM AT 46. PT ASYMPTOMATIC. ORANGE JUICE, CRACKERS, AND CHEESE PROVIDED. REPEAT GLUCOSE 55. ADDITIONAL JUICE AND ICECREAM GIVEN. REPEAT GLUCOSE AT 0650 61, BUT PT STATES SHE HAD JUST FINISHED SNACK 10 MINUTES AGO. ONCOMING RN NOTIFIED. OTHERWISE PT SLEPT LONG INTERVALS DURING THE NIGHT.
[2024-12-16 07:23] VITALS: BP 127/58
[2024-12-16] MEDS ORDERED: Potassium Chl 20MEQ/Water100ML 100 ML IV STA (10:28)
[2024-12-16 11:44] VITALS: BP 123/64
--- NOTE | 2024-12-16 14:01 | NUR ---
NEPHROLOGY ORDER CLARIFICATION NOTE: CALLED DR. ZHU (NEPHROLOGY) TO CLARIFY ARTERIAL BLOOD GAS ORDER. PER DR. ZHU "THERE WAS A NOTE THAT THE PATIENT WAS LETHARGIC WHEN SHE CAME IN, THOUGH SHE SPOKE TO PATIENT HERSELF. PATIENT WAS ALERT AND ORIENTED, ANSWER TO QUESTIONS." RECEIVED ORDER FROM DR. ZHU DC'D ARTERIAL BLOOD GAS NOW. NOTIFIED RT FREEDOM.
[2024-12-16 15:24] VITALS: BP 139/64
--- NOTE | 2024-12-16 18:27 | NUR ---
SHIFT SUMMARY: PATIENT WORK c PT EVAL TODAY, AMBULATED IN HALLWAY X1 c 1 ASSIST/FWW AND DID WELL. PT RECOMMENDING NO FURTHER F/U TX. PATIENT SAT UP IN RECLINER CHAIR FOR ABOUT 4 HRS THIS SHIFT, TOLERATED WELL. PATIENT HAS GREAT APPETITE, CONTINENT OF BLADDER AND AMBULATES TO BATHROOM c SBA. NEPHROLOGY CONSULT WAS CALLED IN TODAY, DR. ZHU SPOKE c PATIENT c PLAN OF CARE. PATIENT DENIES CP/PRESSURE, SOB, N/V AND DIZZINESS. PATIENT ON TELE, SB/SR HR IN THE HIGH 50'S TO MID 60'S BPM. PATIENT BLOOD SUGAR RANGES 97-189 THIS SHIFT, RECEIVED INSULIN COVERAGE PER EMAR LOW SLIDING SCALE. VITAL SIGNS REVIEWED. CALL LIGHT IN REACH.
[2024-12-16 19:34] VITALS: BP 151/70
[2024-12-17] VITALS (7 sets, daily range): BP systolic 144–159; BP diastolic 61–78
--- NOTE | 2024-12-17 06:15 | NUR ---
SHIFT SUMMARY PT SLEPT INTERMITTENTLY DURING THE NIGHT. IVF INFUSING PER ORDER. PT UP TO BATHROOM WITH FWW AND SBA, GAIT MUCH STRONGER THAN PREVIOUS NIGHT. MEDICATED X1 WITH OXYCODONE FOR KNEE PAIN PER EMAR. PT CURRENTLY SITTING IN RECLINER, CALL LIGHT WITHIN REACH.
[2024-12-17 06:41] LABS: Albumin, Blood 2.7 g/dL (3.4-5.0); Anion Gap 10 mmol/L (3-11); Blood Urea Nitrogen 47 mg/dL (8-24); CO2, Blood 19 mmol/L (21-32); Calcium, Blood 8.8 mg/dL (8.5-10.1); Chloride, Blood 111 mmol/L (98-108); Creatinine, Blood 3.02 mg/dL (0.40-1.00); Glucose, Blood 247 mg/dL (70-99); Phosphorus, Blood 4.5 mg/dL (2.5-4.9); Potassium, Blood 4.1 mmol/L (3.5-5.5); Sodium, Blood 136 mmol/L (136-145)
[2024-12-17] MEDS ORDERED: Insulin Human Lispro 100 Units/ML 3ML Syringe SC SCH ×2 (09:00→11:30)
--- NOTE | 2024-12-17 09:00 | NUR ---
pt up to recliner chair, a/ox4, pleasant and cooperative with care, follows commands well, denies pain at this time, lungs are clear t/o, on r/a at this time, no cough noted, hrr, tele in place running sr in 70's per monitor, see strip, trace edema noted to b/l le, piv to lfa site is clear and patent, btx4, abd flat soft nontender, voids without diff via bsc, skin c/w/d, except rash under panus, jose david das, ambulates with a walker, reports consitpation, call light in reach.
[2024-12-17] MEDS ORDERED: Polyethylene Glycol 3350 17 gm PO SCH (10:40)
[2024-12-17] MEDS ORDERED: CARBIDOPA-LEVO1 EA21 PO (16:09)
[2024-12-17] MEDS ORDERED: KLOR-CON 1010 ME4 PO (16:14)
--- NOTE | 2024-12-18 03:30 | NUR ---
SHIFT SUMMARY PATIENT A/O X4. IND IN THE ROOM W/ WALKER. CALLS APPROPRIATELY. NS INFUSING AT 125ML/HR. NO PAIN REPORTED THROUGHOUT SHIFT. PT UP IN CHAIR FOR NOC, NEW CPAP MASK FROM RT DELIVERED, PT USED CPAP THROUGHOUT THE NIGHT. VITAL SIGNS STABLE. URINATING WITHIN NORMAL LIMITS. TELE- NSR 75 PER DRYER OPERATOR. NO REPORT OF N/V. CALL LIGHT IN REACH, BED IN LOWEST POSITION. WILL REPORT ONTO DAY SHIFT RN.
[2024-12-18 03:42] VITALS: BP 154/70
[2024-12-18 07:20] VITALS: BP 154/65
[2024-12-18 10:58] LABS: Albumin, Blood 2.6 g/dL (3.4-5.0); Anion Gap 15 mmol/L (3-11); Blood Urea Nitrogen 42 mg/dL (8-24); CO2, Blood 21 mmol/L (21-32); Calcium, Blood 9.1 mg/dL (8.5-10.1); Chloride, Blood 107 mmol/L (98-108); Creatinine, Blood 2.47 mg/dL (0.40-1.00); Glucose, Blood 237 mg/dL (70-99); Phosphorus, Blood 3.8 mg/dL (2.5-4.9); Potassium, Blood 4.8 mmol/L (3.5-5.5); Sodium, Blood 138 mmol/L (136-145)
[2024-12-18 14:01] VITALS: BP 153/66
[2024-12-18] MEDS ORDERED: INSULIN LI100 UNIT/6 SC (15:35)
[2024-12-18] MEDS ORDERED: INSULANPEN SC (15:35)
[2024-12-18] MEDS ORDERED: METO25ER PO (15:37)
[2024-12-18] MEDS ORDERED: PREG50 PO (15:37)
--- NOTE | 2024-12-18 16:17 | NUR ---
PT DISCHARGED HOME WITH HOME HEALTH. DISCHARGE INSTRUCTIONS DISCUSSED WITH PT. EMPHASIZED IMPORTANCE OF TAKING MEDICATIONS PRESCRIBED UNTIL FOLLOW UP APPT WITH PCP. PT VERBALIZED UNDERSTANDING. NO QUESTIONS OR CONCERNS AT THIS TIME
[2024-12-18] MEDS ORDERED: Insulin Glargine-Yfgn 100 Unit/mL 3 ML SYR SC SCH (21:00)
== END 2024-12-18 16:01 | disposition home health service (06) | DRG 682 ==
LOC: ER 16:17 → MEDS 18:46
PROVIDERS: Emergency Medicine; Internal Medicine; Nurse Practitioner Acute Care; ADMIT Internal Medicine
DX: N17.9 Acute kidney failure, unspecified (principal); G92.8 Other toxic encephalopathy; I12.9 Hypertensive chronic kidney disease with stage 1 through stage 4 chronic kidney disease, or unspecified chronic kidney disease; E11.22 Type 2 diabetes mellitus with diabetic chronic kidney disease; N18.30 Chronic kidney disease, stage 3 unspecified; E78.5 Hyperlipidemia, unspecified; E11.65 Type 2 diabetes mellitus with hyperglycemia; G89.29 Other chronic pain; E66.01 Morbid (severe) obesity due to excess calories; G47.33 Obstructive sleep apnea (adult) (pediatric); M25.561 Pain in right knee; M25.562 Pain in left knee; E11.42 Type 2 diabetes mellitus with diabetic polyneuropathy; K21.9 Gastro-esophageal reflux disease without esophagitis; F41.1 Generalized anxiety disorder; F32.9 Major depressive disorder, single episode, unspecified; G47.00 Insomnia, unspecified; M10.9 Gout, unspecified; E21.3 Hyperparathyroidism, unspecified; E87.6 Hypokalemia; E11.649 Type 2 diabetes mellitus with hypoglycemia without coma; N28.1 Cyst of kidney, acquired; Z98.891 History of uterine scar from previous surgery; Z90.12 Acquired absence of left breast and nipple; Z88.8 Allergy status to other drugs, medicaments and biological substances; Z79.4 Long term (current) use of insulin; Z79.84 Long term (current) use of oral hypoglycemic drugs; Z79.85 Long-term (current) use of injectable non-insulin antidiabetic drugs; Z79.51 Long term (current) use of inhaled steroids; Z79.899 Other long term (current) drug therapy
CPT/HCPCS: 36415; 70450; 71045; 80048; 80053; 80069; 81001; 82550; 82947; 83735; 84484; 85025; 85027; 93005; 93010; 94660; 94762; 96360; 97116; 97161; 97165; 97530; 99285-25; A9270; J1644; J1815; J3475; J3480; J7030